=== PATIENT | male | born 1985 ===

== ENCOUNTER 2016-08-30 20:06 | Emergency (ER) | payer SELFPAY ==
[2016-08-30 23:53] VITALS: BP 124/64
[2016-08-30] MEDS ORDERED: MOTRIN PO ONE (23:55)
--- NOTE | 2016-08-30 23:59 | Emergency Department Report ---
HPI - General Chief Complaint: Dental/Oral Time Seen by Provider: 08/30/16 23:54 - HPI HPI: Patient complaining of toothache for 4 days to right upper back tooth. He said he was trying to get a dentist. Reports pain is 9 out of 10 and achy. Denies any fever or chills. Denies any congestion or headache. ED Past Medical Hx - Past Medical History Previous Medical History?: No - Surgical History Past Surgical History?: No - Family History Family history: no significant - Social History Smoking Status: Current Every Day Smoker Substance Use Type: Alcohol, Non Opiate Pain, Other - Medications Home Medications: Home Medications Medication Instructions Recorded Confirmed Last Taken Type Acetaminophen/Codeine [Tylenol #3] 1 tab PO Q6H PRN #12 tab 08/31/16 Unknown Rx Amoxicillin [Amoxicillin TAB] 875 mg PO BID #20 tablet 08/31/16 Unknown Rx Ibuprofen [Motrin] 600 mg PO Q8H PRN #15 tablet 08/31/16 Unknown Rx ED Review of Systems ROS: Stated complaint: TOOTHACHE Other details as noted in HPI Comment: All other systems reviewed and negative Constitutional: denies: chills, fever Eyes: denies: eye pain ENT: dental pain. denies: ear pain, throat pain, congestion Respiratory: no symptoms reported Cardiovascular: denies: chest pain, palpitations, edema, syncope Skin: denies: rash Neurological: denies: headache Physical Exam - Physical Exam Vital Signs: Vital Signs 08/30/16 08/30/16 20:17 23:52 Temperature 97.8 F 98.2 F Pulse Rate 70 65 Respiratory 18 16 Rate Blood Pressure 147/98 Blood Pressure 124/64 [Right] O2 Sat by Pulse 99 97 Oximetry General: 31-year-old male well-nourished well-developed in no acute distress. Physical Exam: Head: [Normocephalic atraumatic Mouth: Moist, no pharyngeal exudate or erythema. Uvula is midline and oral airway is patent. No gingival enlargement or dental tenderness. No facial swelling. No peritonsillar abscesses. Patient with multiple dental caries and tenderness at tooth #1. no cellulitis noted Neck: Supple, no C-spine tenderness, no tracheal deviation. Nontender to palpate. no adenopathy Ears: Bilateral TMs pearly moreau .bilateral EAC without any redness swelling or drainage Eyes: Bilateral pupils equal and reactive to light, bilateral EOM intact. Bilateral sclera and conjunctiva without injection. Normal accommodation Nose: Mucosa moist, normal mucosa. maxillary and frontal sinus non-tender to palpate. Lungs: Clear to auscultate bilaterally no rhonchi wheezes or rales. Normal work of breathing extremity; No CCE. +2 pulses. No neurovascular compromise Cardiovascular: S1-S2, regular rate rhythm. No murmurs. Skin: clean Dry and intact no rash no lesions Psych: Normal mood and behavior ED Course Vital Signs 08/30/16 08/30/16 20:17 23:52 Temperature 97.8 F 98.2 F Pulse Rate 70 65 Respiratory 18 16 Rate Blood Pressure 147/98 Blood Pressure 124/64 [Right] O2 Sat by Pulse 99 97 Oximetry - Reevaluation(s) Reevaluation #1: 08/30/16 23:59 received Motrin 800 mg in emergency room for toothache. ED Medical Decision Making - Medical Decision Making ED Course: Acid patient that he has multiple dental caries and he will need to be seen by dentist for further evaluation and treatment. Discussed treatment plan with him and informed him to see discharge instructions for referral to dentist . Patient was given Motrin 800 mg in emergency room for pain.discharge home with prescription for amoxicillin and Tylenol No. 3 Critical care attestation.: If time is entered above; I have spent that time in minutes in the direct care of this critically ill patient, excluding procedure time. ED Disposition Clinical Impression: Tooth ache, Dental caries Disposition: DISCHARGED TO HOME OR SELFCARE Is pt being admited?: No Does the pt Need Aspirin: No Condition: Stable Instructions: Dental Caries (ED), Toothache (ED) Additional Instructions: Please do not drive or operate heavy machinery while taking Tylenol No. 3 as this medication causes drowsiness. Prescriptions: Acetaminophen/Codeine [Tylenol #3] 1 tab PO Q6H PRN #12 tab PRN Reason: Toothache Amoxicillin [Amoxicillin TAB] 875 mg PO BID #20 tablet Ibuprofen [Motrin] 600 mg PO Q8H PRN #15 tablet PRN Reason: Pain Referrals: PRIMARY CARE, [Primary Care Provider] - 3-5 Days [facility] [Outside] - 2-3 Days Forms: Work/School Release Form(ED)
== END 2016-08-31 00:04 | disposition home or self-care (01) ==
LOC: ED 20:06
DX: K02.9 Dental caries, unspecified (principal); K08.89 Other specified disorders of teeth and supporting structures; F17.200 Nicotine dependence, unspecified, uncomplicated
CPT/HCPCS: 99282